=== PATIENT | female | born 1955 | race Caucasian/White ===

== ENCOUNTER 2018-10-06 05:37 | Outpatient (CLI) | payer MEDICARE ==
[~2018-10-06] VITALS: Ht 172.7 cm; Wt 131.5 kg
[2018-10-06] MEDS ORDERED: FLUO20CA42 PO (10:56)
[2018-10-06] MEDS ORDERED: BUDE10.2 IH (10:56)
[2018-10-06] MEDS ORDERED: METO-370 PO (10:56)
[2018-10-06] MEDS ORDERED: ZOLP10TA5 PO (10:56)
[2018-10-06] MEDS ORDERED: LISI1TAB8 PO (10:56)
[2018-10-06] MEDS ORDERED: TIZA4CAP PO (10:56)
[2018-10-06] MEDS ORDERED: RT-ALBUINH IH (10:56)
[2018-10-06] MEDS ORDERED: ALPR1TAB7 PO (10:56)
[2018-10-06] MEDS ORDERED: LEVO125T6 PO (10:56)
[2018-10-06] MEDS ORDERED: GABA-488 PO (13:29)
== END 2018-10-06 14:20 | disposition home or self-care (01) ==
LOC: PREOP 05:37
PROVIDERS: ATTEND Orthopaedic Surgery Orthopaedic Surgery of the Spine
DX: Z01.818 Encounter for other preprocedural examination (principal)

== ENCOUNTER 2018-10-11 06:50 | Day surgery (SDC) | payer MEDICARE, OTHER ==
[~2018-10-11] VITALS: Ht 172.7 cm; Wt 131.5 kg
[2018-10-11] VITALS (12 sets, daily range): BP systolic 81–150; BP diastolic 30–95
[~2018-10-11 06:50] MED LIST: ALPR1TAB7 PO; BUDE10.2 IH; FLUO20CA42 PO; GABA-488 PO; LEVO125T6 PO; LISI1TAB8 PO; METO-370 PO; RT-ALBUINH IH; TIZA4CAP PO; ZOLP10TA5 PO
[2018-10-11] MEDS ORDERED: GENTAMICIN 40 MG/ML 2 ML INJ SDV ONE (07:11)
[2018-10-11] MEDS ORDERED: VANCOMYCIN 1000 MG/VIAL ONE (07:11)
[2018-10-11] MEDS ORDERED: BUP/EPI 0.25% 1:200,000 (MARCAINE) 10 ML VIAL IJ ONE ×2 (07:11→07:12)
[2018-10-11] MEDS ORDERED: SUCCINYLCHOLINE INJ 100 MG/5 ML SYR ONE ×2 (07:18→08:53)
[2018-10-11] MEDS ORDERED: SEVOFLURANE (ULTANE) 15 ML INHAL SOLN ONE (07:18)
[2018-10-11] MEDS ORDERED: LIDOCAINE PF 2% 5 ML (XYLOCAINE) VIAL ONE (07:18)
[2018-10-11] MEDS ORDERED: proPOfol 200 MG/20 ML (DIPRIVAN) VIAL IV ONE (07:18)
[2018-10-11] MEDS ORDERED: fentaNYL INJECTION 100 MCG/2 ML AMP ONE (07:18)
[2018-10-11] MEDS ORDERED: MIDAZOLAM 2 MG/2 ML (VERSED) VIAL ONE (07:18)
[2018-10-11] MEDS ORDERED: ONDANSETRON 4 MG/2 ML (SDV) Z0FRAN ONE ×2 (07:21→09:46)
[2018-10-11] MEDS ORDERED: DEXAMETHASONE 10 MG/ML (DECADRON) 1 ML VIAL ONE (07:21)
[2018-10-11] MEDS ORDERED: ceFAZolin 2 GM IV Premixed 50 ML IV ONE (07:30)
[2018-10-11] MEDS: LACTATED RINGERS 1,000 ML IV PRN ×2 (07:35→10:08)
[2018-10-11] MEDS ORDERED: OMEP40CA36 PO (08:04)
[2018-10-11] MEDS ORDERED: FAMOTIDINE 20MG/2ML IV (PEPCID) ONE (08:04)
[2018-10-11] MEDS ORDERED: FAMOTIDINE 20MG/2ML IV (PEPCID) IVP ONE (08:15)
[2018-10-11] MEDS ORDERED: RANI150T90 PO (08:17)
[2018-10-11] MEDS ORDERED: ROCURONIUM 10 MG/ML 5 ML SYRINGE IV ONE (09:26)
[2018-10-11] MEDS ORDERED: GLYCOPYRROLATE 0.2 MG/ML (ROBINUL) 2 ML VIAL ONE (09:27)
[2018-10-11] MEDS ORDERED: NEOSTIGMINE 1 MG/ML 5 ML SYRINGE ONE (09:27)
[2018-10-11] MEDS ORDERED: PHENYLEPHRINE 100 MCG/ML 10 ML (ANESTHESIA) SYR ONE (09:35)
--- NOTE | 2018-10-11 09:36 | Progress Note-Post Operative ---
Post-Operative Progess Note Surgeon (s)/Brusher Tender (s) Surgeon BLAIR MULLER MD Brusher Tender: LARRY Ramsay Pre-Operative Diagnosis Lumbago, Hardware pain Post-Operative Diagnosis same Procedure & Operative Findings Date of Procedure 10/11/18 Procedure Performed/Findings Revision of SCS battery site Anesthesia Type GETA Estimated Blood Loss Estimated blood loss (mL): min Specimens/Packing Specimens Removed none BLAIR MULLER MD October 11, 2018 09:36
[2018-10-11] MEDS ORDERED: ONDANSETRON 4 MG/2 ML (SDV) Z0FRAN IVP PRN (10:00)
[2018-10-11] MEDS ORDERED: PROMETHAZINE INJ 25 MG/ML (PHENERGAN) AMP IVP ONE (10:00)
[2018-10-11] MEDS ORDERED: HYDROmorphone 2 MG/ML VIAL (DILAUDID) IV ONE (10:00)
--- NOTE | 2018-10-11 11:00 | NUR ---
TO AMB SURG FROM PAR PER CART. ALERT, RATES LOW BACK SURGICAL SITE PAIN 3. OPSITE OVER GAUZE DRESSINGS INTACT TO X2 SURGICAL SITES AT LOW BACK, LEFT OF SPINE. TWO AREAS OF LIGHT RED DRAINAGE ON LOWER OF THE TWO SITES, DRAINAGE MEASURES APPROX 1.5 TO 2 CM IN DIAMETER. BORDERS MARKED. ICE PACK APPLIED TO SITE. PT LYING ON RIGHT SIDE, RAILS UP X2, BED LOW AND LOCKED. PO FLUIDS PROVIDED.
[2018-10-11] MEDS ORDERED: IOPAMIDOL 61% 30 ML (ISOVUE 300) VIAL IV ONE (11:28)
--- NOTE | 2018-10-11 11:30 | NUR ---
NO INCREASE IN AREA OF DRAINAGE ON LOWER SURGICAL SITE DRESSING. RATES LOW BACK PAIN 2-3. CONTACTED DR MULLER REGARDING POST OP PAIN MEDICATION. STATES PT CAN USE OTC SUCH TYLENOL OR IBUPROFEN NEEDED. OFFERED TYLENOL OR IBUPROFEN TO PT, STATES "I'M OK, I DON'T NEED ANYTHING RIGHT NOW." VISITING WITH MOM IN ROOM.
--- NOTE | 2018-10-11 11:57 | Anesthesia-General Post-Op ---
General Patient Condition Mental Status/LOC: Same as Preop Cardiovascular: Satisfactory Nausea/Vomiting: Absent Respiratory: Satisfactory Pain: Controlled Complications: Absent Post Op Complications Complications None Follow Up Care/Instructions Patient Instructions None needed. Anesthesia/Patient Condition Patient Condition Patient is doing well, no complaints, stable vital signs, no apparent adverse anesthesia problems. No complications reported per nursing. D/C home per [facility] [place] Criteria: Yes NATALY TREJO CRNA October 11, 2018 11:57
--- NOTE | 2018-10-11 12:15 | NUR ---
ALERT, NO CHANGE IN SURGICAL SITE ASSESSMENT. PAIN RATED 2. TAKING PO FLUIDS WITHOUT PROBLEM. STATES SHE IS READY FOR DISMISSAL. UP TO DRESS FOR HOME, TOLERATED WELL.
--- NOTE | 2018-10-11 16:07 | OPERATIVE REPORT ---
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 POSTOPERATIVE DIAGNOSIS: Painful spinal cord stim battery with a chronic lumbago. PROCEDURE PERFORMED: Revision of battery site for spinal cord stimulator. DATE AND TIME OF SURGERY: Please see anesthesia record. IMPLANTS USED: [employer] Penta lead and Proclaim 7 MRI compatible battery. SURGEON: Blair Haskins MD PEN RULER OPERATOR: HELEN Ramsay. ROLE OF RUBBISH COLLECTION SUPERVISOR: Aid in retraction of the procedure, aid in wound closure. ANESTHESIA: General endotracheal. ESTIMATED BLOOD LOSS: Minimal. INTRAVENOUS FLUIDS: Please see anesthesia record. ANTIBIOTICS: Ancef. COMPLICATIONS: None. SPECIMENS: None. INDICATIONS FOR PROCEDURE: The patient is a 63-year-old female with previous spinal cord stimulator. Her battery has been feeling like it is swiping and rolling in one of her creases at her waist and she desires to have it removed after trying several things to see if she could diminish the symptoms. DESCRIPTION OF PROCEDURE: The patient was taken to the preoperative holding area and brought back to the operative suite. After adequate induction of general anesthetic, placed in lateral decubitus position with the left side up on a beanbag, sterile prepped and draped to her left lumbar spine and flank and then the battery site was opened and a new battery site was made slightly lateral and slightly proximal above her waist crease in a flat area of her flank. New battery site was created. Extensions were added to the lead. Strain relief loops were placed into the original battery site and they were tunneled to the new battery site. They were connected to the Proclaim 7 battery. System was functioning well and then Ti-Cron was utilized to anchor it down through the two anchor sites to prevent battery migration or movement. Wounds were closed in layers. The patient transferred to recovery room in stable condition having tolerated the procedure well. Job ID: [id number] DocumentID: [id number] Dictated Date: 10/11/2018 09:35:30 Warp Knitter Date: 10/11/2018 16:07:09 Dictated By: BLAIR HASKINS MD
== END 2018-10-11 12:15 | disposition home or self-care (01) ==
LOC: SDC 06:50
PROVIDERS: ATTEND Orthopaedic Surgery Orthopaedic Surgery of the Spine
DX: T85.840A Pain due to nervous system prosthetic devices, implants and grafts, initial encounter (principal); Z11.2 Encounter for screening for other bacterial diseases; Z88.2 Allergy status to sulfonamides; Z79.899 Other long term (current) drug therapy; Z98.1 Arthrodesis status; I10 Essential (primary) hypertension; J45.909 Unspecified asthma, uncomplicated; G47.33 Obstructive sleep apnea (adult) (pediatric); F41.9 Anxiety disorder, unspecified; F32.9 Major depressive disorder, single episode, unspecified; Z87.891 Personal history of nicotine dependence; Z85.43 Personal history of malignant neoplasm of ovary
CPT/HCPCS: 87081